=== PATIENT | female | born 1980 | race Hispanic/Latino ===

== ENCOUNTER 2017-11-07 14:47 | Day surgery (SDC) | payer MEDICAID, OTHER, SELFPAY ==
--- NOTE | 2017-11-07 16:44 | PDOC.LDHP ---
Labor and Delivery H&P Chief complaint: abdominal pain (pelvic pain, vaginal pressure) HPI: 36yo at 37.2wk here for pelvic pain and vaginal pressure since awakening this morning. Denies any fevers, chills, upper abd pain, discharge, vaginal bleeding or LOF. Not feeling any Ctx. Drinking 4 cups of water per day at baseline. No other concerns today. Current gestational age (weeks): 37 (37.2) Due date: 11/26/17 Grav: 6 Para: 4 Current complications: none Current medications: pre- vitamins Social history: none - Physical Exam Vital signs reviewed and normal: yes General: NAD, resting Heart: RRR Lungs: CTAB Abdomen: other (gravid, nontender fundus, ttp along round ligament and pubic symphysis) Extremeties: no edema FHT: category 1, variability present [place] contractions every: rare occasional contraction - Vaginal Exam cm dilated: 2 (2-2.5) Effacement: 50% Station: -1 - Assessment 1) TIUP- rare ctx on toco and pt not feeling regular ctx. cervix unchanged at 2.5cm. not in active labor 2) Round ligament pain - Plan -: discharge home with instructions to increase water intake to a goal of 8 bottles of water per day. Recommended 1000mg tylenol q6hr prn pain and may take benadryl prn qhs to assist with sleep. f/u with pcp at c. discussed poc with Dr. Courtney Multani who agreed with the above A&P. <Gail Lozano - Last Filed: 11/07/17 16:34> <Courtney Multain - Last Filed: 11/07/17 17:25> Allergies/Adverse Reactions: Allergies Allergy/AdvReac Type Severity Reaction Status Date / Time No Known Allergies Allergy Unverified 02/01/13 14:38 Attending Addendum - Attending Addendum Date/Time: 11/07/17 [id number] I personally evaluated the patient and discussed the management with Dr. Lozano. I agree with the History, Examination, Assessment and Plan documented above. <Courtney Multani - Last Filed: 11/07/17 17:25>
[2017-11-07 16:52] VITALS: BMI 29.0
== END 2017-11-07 16:58 | disposition home or self-care (01) ==
LOC: L&D/OP 14:47
PROVIDERS: ATTEND Obstetrics & Gynecology
DX: O99.89 Other specified diseases and conditions complicating pregnancy, childbirth and the puerperium (principal); R10.2 Pelvic and perineal pain; Z3A.37 37 weeks gestation of pregnancy; Z79.899 Other long term (current) drug therapy

== ENCOUNTER 2017-12-04 21:09 | Day surgery (SDC) | payer OTHER ==
[2017-12-04 21:40] VITALS: BP 119/69; TEMP 98.4; BMI 27.1
--- NOTE | 2017-12-04 21:50 | PDOC.LDHP ---
Labor and Delivery H&P Chief complaint: contractions HPI: 36 at 40.1 by 6.4 wk US. Here with complaint of contractions q30 minutes all day. She states that she thinks that she lost her mucus plug earlier today. She denies loss of fluid, bleeding, decreased movement, or abdominal tenderness. Her has been complicated by GBS + status, AMA and hx of macrosomia. Current gestational age (weeks): 40 (40.1) Due date: 12/03/17 Dating criteria: first trimester ultrasound Grav: 6 Para: 4 Current complications: other (AMA) Abnormal US findings: No Current medications: pre- vitamins Allergies/Adverse Reactions: Allergies Allergy/AdvReac Type Severity Reaction Status Date / Time No Known Allergies Allergy Unverified 12/04/17 21:33 Social history: none - Physical Exam Vital signs reviewed and normal: yes General: breathing through contractions Heart: RRR Lungs: CTAB Abdomen: gravid Extremeties: no edema FHT: category 1, variability present, absent or minimal variables [place] contractions every: 12 - Vaginal Exam cm dilated: 4 Effacement: 0% Station: -3 - OB Labs Blood type: O RH: positive Antibody Screen: negative HIV: negative RPR: negative HEPSAg: negative 1 hour GCT: negative GBS: positive Urine drug screen: negative Rubella: immune - Assessment 36 yo at 40.1 in latent labor. - Cat 1 strip - No loss of fluid, bleeding, decreased movement - Dilated to 4. - Monitor in L&D and recheck in 1 hour. - Plan Plan: observation in L&D
== END 2017-12-04 23:15 | disposition home or self-care (01) ==
LOC: L&D/OP 21:09
PROVIDERS: ATTEND Obstetrics & Gynecology
DX: O47.1 False labor at or after 37 completed weeks of gestation (principal); O09.523 Supervision of elderly multigravida, third trimester; Z79.899 Other long term (current) drug therapy; Z3A.40 40 weeks gestation of pregnancy

== ENCOUNTER 2017-12-05 11:37 | Inpatient (IN) | payer MEDICAID, OTHER, SELFPAY ==
[2017-12-05 12:05] VITALS: BMI 27.1
[2017-12-05] MEDS ORDERED: Penicillin G Potassium 5 MILL.UNITS VIAL ONE ×2 (12:12→12:13)
[2017-12-05] MEDS: Lactated Ringer's 1,000 ML IV SCH ×2 (12:15→22:38)
[2017-12-05] MEDS ORDERED: Promethazine HCl 25 MG/ML VIAL IM PRN (12:20)
[2017-12-05] MEDS ORDERED: Lidocaine 1% (PF) 30 ML VIAL SC PRN (12:20)
[2017-12-05] MEDS ORDERED: LR / Pitocin 40 units/1000 ml 1,000 ML IV PRN (12:20)
[2017-12-05] MEDS ORDERED: Docusate 100 MG CAP PO PRN (12:20)
[2017-12-05] MEDS ORDERED: Ondansetron HCl/PF 4 MG/2 ML Vial IVP PRN ×2 (12:20→14:24)
[2017-12-05] MEDS ORDERED: Penicillin G Potassium 5 MILL.UNITS in Sodium Chloride 0.9% 100 ML IVPB SCH (12:30)
[2017-12-05 12:33] LABS: Hemoglobin 14.6 g/dL (12.0-16.0); Mean Corpuscular HGB CONC 34.6 g/dL (32.0-36.0); Mean Corpuscular Hemoglobin 31.1 pg (27.0-31.0); Mean Corpuscular Volume 89.6 fl (81.0-99.0); Mean Platelet Volume 7.9 fL (7.4-10.4); Platelet Count 180 thou/uL (130-400); RBC Distribution Width 12.6 % (11.5-14.5); Red Blood Cell (RBC) Count 4.69 mill/uL (4.20-5.40); White Blood Cell (WBC) Count 8.3 thou/uL (4.8-10.8)
--- NOTE | 2017-12-05 12:42 | PDOC.LDHP ---
Labor and Delivery H&P Chief complaint: contractions HPI: 36 yo @ 40.2 weeks presents for painful contractions. Reports contractions started last night and were approx 10 minutes apart. She was triaged on L7D and sent home. She returns today with contractions q5min. She reports loss of mucus plug and some vaginal bleeding. Denies complications both previously and with current . All prior vaginal deliveries. Denies cp, sob, nvdc, headache, vision changes, edema. Current gestational age (weeks): 40 Dating criteria: last menstrual period, first trimester ultrasound Grav: 6 Para: 5 OB History Details: GBS + Current complications: none Abnormal US findings: No Current medications: pre- vitamins Previous surgical history: none Social history: none - Physical Exam Vital signs reviewed and normal: yes General: breathing through contractions Heart: RRR Lungs: nonlabored breathing Abdomen: NTTP Extremeties: no edema FHT: category 1, early decelerations [place] contractions every: 4-5 - Vaginal Exam cm dilated: 7 Effacement: 100% Station: -1 - OB Labs Blood type: O RH: positive Antibody Screen: negative HIV: negative RPR: negative HEPSAg: negative 1 hour GCT: negative GBS: positive Rubella: immune - Assessment L&D Assessment: term patient in labor - Plan Plan: admit to L&D -: 1) Grand multip in labor w/ ama -admit l&d -stadol prn pain -EFHR monitor -cat 1 strip rate 140s mod variability, rare early decels -vertex presentation, ant placenta -last check 7-8, 100, -1 2) GBS positive -Pen g 5mill units -2.5 mil units q4hr for ppx <Abraham Farris - Last Filed: 12/05/17 13:10> - Plan Plan: admit to L&D (Agree with Plan. Patient seen and examined by me. See Faculty note.) <Jacob Gaytan - Last Filed: 12/05/17 14:16> Allergies/Adverse Reactions: Allergies Allergy/AdvReac Type Severity Reaction Status Date / Time No Known Allergies Allergy Unverified 12/04/17 21:33
--- NOTE | 2017-12-05 13:06 | PDOC.LDHP ---
Labor and Delivery H&P HPI: FACULTY NOTE: Patient was first seen by [facility] flooring professional. This patient has an H &P entered unto tomorrow's date. This is the correct entry: Patient is a 36 yo at 40 weeks 2 days by sure criteria here for contractions. SROM just occurred here in L&D, and she is now 8cm...admitted at 7cm just 20 minutes ago. No other issues. Review of systems: complete ROS performed and only as per HPI. Current gestational age (weeks): 40 (2 days) Dating criteria: last menstrual period, first trimester ultrasound Grav: 6 Para: 5 OB History Details: SVDs in past Current complications: none Abnormal US findings: No Current medications: pre- vitamins Previous surgical history: none Allergies/Adverse Reactions: Allergies Allergy/AdvReac Type Severity Reaction Status Date / Time No Known Allergies Allergy Unverified 12/04/17 21:33 Social history: none - Physical Exam Vital signs reviewed and normal: yes General: NAD Heart: RRR Lungs: CTAB Abdomen: gravid (EFW approx 6.5#) Extremeties: no edema FHT: category 1 [place] contractions every: Every 4 minutes - Vaginal Exam cm dilated: 8 (SROM just occurred) Effacement: 100% Station: 0 - OB Labs Blood type: O RH: positive HIV: negative RPR: negative GBS: positive - Assessment L&D Assessment: term patient in labor - Plan Plan: admit to L&D, GBS antibiotic prophylaxis, informed consent obtained, anesthesia consult for pain management
[2017-12-05 13:13] LABS: HBSAg Index 0.15 S/CO (0-0.99); Hep B Surf Ag Non-Reactive S/CO (NonReactive); Syphilis Antibody Nonreactive (Nonreactive); Syphilis Antibody Index 0.04 S/CO (<1.00 Non-Reactive)
--- NOTE | 2017-12-05 14:19 | PDOC.OPDEL ---
OB Operative/Delivery Note Delivery Dr/Surgeon: Elizabeth/Kaleigh; [facility] faculty (Present and supervised) Pre-Delivery Diagnosis: active labor, other (Grand-Multigravida, term.) Procedure/Post Delivery Dx: spontaneous vaginal delivery Weeks gestation: 40 - Findings A Sex: female (Delivery at 1405) - 1 min: 9 - 5 min: 9 - Additional Findings/Plan Placenta delivered: spontaneous (Delivered spontaneously within 10minutes. Aiken mechanism, 3VC. Placenta intact.) Repaired Obstetrical Laceration: other Estimated blood loss: 300 Compilations/Other Findings: Counts correct
[2017-12-05] MEDS ORDERED: Lanolin Ointment 7 GM TUBE TOP PRN (14:24)
[2017-12-05] MEDS ORDERED: Bisacodyl 10 MG SUPP PR PRN (14:24)
[2017-12-05] MEDS ORDERED: Milk Of Magnesia 30 ML UDCUP PO PRN (14:24)
[2017-12-05] MEDS ORDERED: Adacel (T-DAP) 0.5 ML VIAL IM ONE (14:24)
[2017-12-05] MEDS ORDERED: LR / Pitocin 40 units/1000 ml 1,000 ML IV SCH (14:30)
[2017-12-05] MEDS: Ibuprofen 800 MG TAB PO SCH (15:26)
[2017-12-05] MEDS: Ferrous Sulfate 325 MG TAB PO SCH (17:35)
[2017-12-05] MEDS: Penicillin G 2.5 MILL.units 2.5 MILL.UNITS in Premix Bag 1 BAG IVPB SCH (17:35)
[2017-12-05] MEDS: Acetaminophen 500 MG TAB PO PRN (22:38)
[2017-12-05] MEDS: Docusate Calcium (SURFAK) 240 MG CAP PO SCH (22:39)
[2017-12-06 05:27] LABS: Hemoglobin 10.8 g/dL (12.0-16.0); Mean Corpuscular HGB CONC 33.9 g/dL (32.0-36.0); Mean Corpuscular Hemoglobin 31.6 pg (27.0-31.0); Mean Corpuscular Volume 93.1 fl (81.0-99.0); Mean Platelet Volume 8.2 fL (7.4-10.4); Platelet Count 169 thou/uL (130-400); RBC Distribution Width 12.6 % (11.5-14.5); Red Blood Cell (RBC) Count 3.41 mill/uL (4.20-5.40); White Blood Cell (WBC) Count 8.3 thou/uL (4.8-10.8)
[2017-12-06] MEDS: Ibuprofen 800 MG TAB PO SCH ×4 (05:30→22:17)
--- NOTE | 2017-12-06 07:46 | PDOC.EVN ---
Event Note - Event Note Event Note: Faculty note: Patient s/p Doing well VSS afebrile Hct 31 Physical: NAD Uterine fundus firm and NT A/P: PP D1...will assess ability for discharge home at noon today ([facility] to assess).
--- NOTE | 2017-12-06 08:00 | PDOC.PP ---
Post Progress Note Post Day #: 1 Subjective: Feeling well. Pain well controlled overnight. PO intake tolerated: yes Flatus: no Ambulation: yes Vital Signs (12 hours) Temp Pulse Resp BP 12/06/17 07:44 98.0 F 56 L 18 98/53 L 12/06/17 05:32 98.5 F 55 L 18 96/56 L 12/06/17 04:00 98.5 F 55 L 18 12/06/17 00:00 98.6 F 97 18 12/05/17 20:00 98.6 F 97 18 86/50 L Weight Weight 76.204 kg - Physical Examination General: NAD Cardiovascular: no m/r/g, RRR Respiratory: clear to auscultation bilaterally, non-labored breathing Abdominal: + bowel sounds, lochia (moderate), no distention, appropriately TTP Extremities: negative homans (B) Skin: no rash Neurological: no gross focal deficits Psychiatric: A&Ox3, normal affect Result Diagrams: 12/06/17 04:47 Additional Labs: Post Labs Hep Bs Antigen Non-Reactive S/CO (NonReactive) 12/05/17 12:15 (1) Vaginal delivery Code(s): O80 - ENCOUNTER FOR FULL-TERM UNCOMPLICATED DELIVERY Status: Acute Comment: Delivered TAGA F @ 1405 on 12/06/17 via w/o complications. Hemoglobin decreased from 14.6 to 10.8 overnight but patient remains asymptomatic. BPs also on low side of normal but again pt denies any associated symptoms. Will continue to monitor throughout today and reassess at noon for discharge planning. Baby will likely need to stay at least 36 HOL due to GBS positive without adequate ppx, so consider bed and breakfast v. keeping until tomorrow. (2) Grand multiparity Code(s): Z64.1 - PROBLEMS RELATED TO MULTIPARITY Status: Acute Comment: EBL 300mL.
[2017-12-06] MEDS: Penicillin G 2.5 MILL.units 2.5 MILL.UNITS in Premix Bag 1 BAG IVPB SCH ×3 (09:48→18:17)
[2017-12-06] MEDS: Lactated Ringer's 1,000 ML IV SCH ×3 (09:50→22:18)
[2017-12-06] MEDS: Ferrous Sulfate 325 MG TAB PO SCH ×2 (09:50→18:18)
[2017-12-06] MEDS: Docusate Calcium (SURFAK) 240 MG CAP PO SCH ×2 (09:53→22:17)
[2017-12-06] MEDS: Prenatal Vitamin 1 TAB PO SCH (09:53)
[2017-12-07] MEDS: Acetaminophen 500 MG TAB PO PRN (01:35)
[2017-12-07] MEDS: Ibuprofen 800 MG TAB PO SCH ×2 (06:19→13:50)
[2017-12-07] MEDS: Penicillin G 2.5 MILL.units 2.5 MILL.UNITS in Premix Bag 1 BAG IVPB SCH ×3 (07:32→07:35)
[2017-12-07] MEDS: Lactated Ringer's 1,000 ML IV SCH (07:33)
[2017-12-07] MEDS: Ferrous Sulfate 325 MG TAB PO SCH (07:34)
[2017-12-07] MEDS: Prenatal Vitamin 1 TAB PO SCH (07:52)
[2017-12-07] MEDS: Docusate Calcium (SURFAK) 240 MG CAP PO SCH (07:53)
--- NOTE | 2017-12-07 08:50 | PDOC.PP ---
Post Progress Note Post Day #: 2 Subjective: Doing well, no issues reported. PO intake tolerated: yes Flatus: yes Ambulation: yes Vital Signs (12 hours) Temp Pulse Resp 12/07/17 04:00 98.1 F 66 18 12/07/17 00:00 98.1 F 66 18 Weight Weight 76.204 kg - Physical Examination General: NAD Cardiovascular: no m/r/g, RRR Respiratory: clear to auscultation bilaterally, non-labored breathing Abdominal: + bowel sounds, lochia, no distention, appropriately TTP Extremities: negative homans (B) Skin: no rash Neurological: no gross focal deficits Psychiatric: A&Ox3, normal affect Result Diagrams: 12/06/17 04:47 Additional Labs: Post Labs Hep Bs Antigen Non-Reactive S/CO (NonReactive) 12/05/17 12:15 (1) Vaginal delivery Code(s): O80 - ENCOUNTER FOR FULL-TERM UNCOMPLICATED DELIVERY Status: Acute Comment: Delivered TAGA F @ 1405 on 12/05/17 via w/o complications. Hemoglobin decreased from 14.6 to 10.8 PP but pt has remained asx. Baby to stay 48 hours due to maternal GBS positive status w/o adequate ppx during labor. Will plan for maternal d/c with baby around 2pm this afternoon. (2) Grand multiparity Code(s): Z64.1 - PROBLEMS RELATED TO MULTIPARITY Status: Acute Comment: EBL 300mL. <Mendez Johnson - Last Filed: 12/07/17 08:47> Vital Signs (12 hours) Temp Pulse Resp BP 12/07/17 08:00 98.3 F 57 L 12 101/58 L 12/07/17 04:00 98.1 F 66 18 12/07/17 00:00 98.1 F 66 18 Weight Weight 168 lb Result Diagrams: 12/06/17 04:47 Additional Labs: Post Labs Hep Bs Antigen Non-Reactive S/CO (NonReactive) 12/05/17 12:15 - Assessment/Plan FACULTY NOTE: patient has been seen and evaluated by me. Vitals and overnight care reviewed. Agree with Dr Johnson assessment. Patient is clear for discharge as PPD2 S/P . <Jacob Gaytan - Last Filed: 12/07/17 09:37>
[2017-12-07 09:20] VITALS: BP 101/58; TEMP 98.3
== END 2017-12-07 15:05 | disposition home or self-care (01) | DRG 775 ==
LOC: L&D/OP 11:37 → L&D 14:41 → 3SW 16:24
PROVIDERS: ADMIT Obstetrics & Gynecology; ATTEND Obstetrics & Gynecology
PROC: 10E0XZZ Delivery of Products of Conception, External Approach (ICD-10-PCS; principal; 2017-12-05)
DX: O99.824 Streptococcus B carrier state complicating childbirth (principal); Z37.0 Single live birth; Z3A.40 40 weeks gestation of pregnancy; Z64.1 Problems related to multiparity
CPT/HCPCS: 36415; 85027; 86780; 87340; 99285; J0595; J2540

== ENCOUNTER 2019-04-28 06:12 | Emergency (ER) | payer MEDICAID, SELFPAY ==
[2019-04-28 06:37] LABS: #Lymphocytes 1.4 thou/uL (1.20-3.40); #Monocytes 0.8 thou/uL (0.11-0.59); #Neutrophils 15.4 thou/uL (1.40-6.50); %Basophils 0.2 % (0.0-1.0); %Eosinophils 0.3 % (0.0-10.0); %Lymphocytes 7.8 % (21.0-51.0); %Monocytes 4.6 % (0.0-10.0); %Neutrophils 87.1 % (42.0-75.0); Hemoglobin 13.3 g/dL (12.0-16.0); Mean Corpuscular HGB CONC 33.9 g/dL (32.0-36.0); Mean Corpuscular Hemoglobin 31.3 pg (27.0-31.0); Mean Corpuscular Volume 92.3 fL (78.0-98.0); Mean Platelet Volume 7.7 fL (7.4-10.4); Platelet Count 191 thou/uL (130-400); RBC Distribution Width 12.3 % (11.5-14.5); Red Blood Cell (RBC) Count 4.25 mill/uL (4.20-5.40); White Blood Cell (WBC) Count 17.6 thou/uL (4.8-10.8)
[2019-04-28 06:52] LABS: ALT (SGPT) 10 U/L (8-55); AST (SGOT) 18 U/L (5-34); Albumin 4.1 g/dL (3.5-5.0); Alkaline Phosphatase 77 U/L (40-150); Anion Gap 14 mmol/L (10-20); BUN (Urea Nitrogen) 11 mg/dL (7.0-18.7); Bilirubin, Total 0.5 mg/dL (0.2-1.2); Calc. Creatinine Clearance 0 mL/min (70-130); Calcium 9.2 mg/dL (7.8-10.44); Carbon Dioxide 19 mmol/L (22-29); Chloride 106 mmol/L (98-107); Estimated GFR-MDRD Greater than 90; Globulin 2.6 g/dL (2.4-3.5); Glucose 95 mg/dL (70-105); Potassium 3.5 mmol/L (3.5-5.1); Protein, Total 6.7 g/dL (6.0-8.3); Sodium 135 mmol/L (136-145)
[2019-04-28] MEDS ORDERED: HYDROcodone/Acetaminophen 10/325 mg Tablet ONE (06:56)
== END 2019-04-28 07:41 | disposition home or self-care (01) ==
LOC: ERS 06:12
DX: O20.0 Threatened abortion (principal); Z3A.16 16 weeks gestation of pregnancy
CPT/HCPCS: 36415; 80053; 84702; 85025; 96360

== ENCOUNTER 2019-04-29 02:44 | Emergency (ER) | payer OTHER, SELFPAY ==
[2019-04-29] MEDS ORDERED: Ondansetron PF 4 MG/2 ML Vial ONE (03:14)
[2019-04-29] MEDS ORDERED: Morphine 4 MG/ML VIAL ONE (03:14)
[2019-04-29 03:59] LABS: Hemoglobin 12.6 g/dL (12.0-16.0); Mean Corpuscular HGB CONC 34.6 g/dL (32.0-36.0); Mean Corpuscular Hemoglobin 31.7 pg (27.0-31.0); Mean Corpuscular Volume 91.6 fL (78.0-98.0); Mean Platelet Volume 7.9 fL (7.4-10.4); Platelet Count 177 thou/uL (130-400); RBC Distribution Width 12.3 % (11.5-14.5); Red Blood Cell (RBC) Count 3.97 mill/uL (4.20-5.40); White Blood Cell (WBC) Count 14.8 thou/uL (4.8-10.8)
[2019-04-29 04:07] LABS: Bacteria/HPF None Seen HPF (None Seen); Bilirubin Negative (Negative); Blood, Urine 3+ (Negative); Clarity Clear (Clear); Glucose, Urine (Dipstick) Normal (Negative); Leukocyte 250 Leu/uL (Negative); Mucous/LPF Rare LPF (<2+); Nitrite Negative (Negative); Protein, Urine (Dipstick) 20 mg/dL (Neg-Trace); RBC/HPF Greater than 50 HPF (0-3); Squamous Epithelial 0-3 HPF (0-3); Urobilinogen Normal mg/dL (Less than 2)
[2019-04-29 04:22] LABS: Band 15 % (5-11); Lymphocytes 11 % (21-51); MDiff Complete? YES; Monocytes 4 % (0-10); Neutrophil 70 % (42-75); Platelet Morphology Comment Appears Adequate
== END 2019-04-29 04:32 | disposition home or self-care (01) ==
LOC: ERS 02:44
DX: O03.9 Complete or unspecified spontaneous abortion without complication (principal)
CPT/HCPCS: 81003; 81015; 84702; 85025; 86900; 86901; 96374; 96375; J2270; J2405

== ENCOUNTER 2020-10-12 22:01 | Emergency (ER) | payer OTHER, SELFPAY ==
[2020-10-12 23:10] LABS: Bacteria/HPF Rare-Few HPF (None Seen); Bilirubin Negative (Negative); Blood, Urine Negative (Negative); Clarity Clear (Clear); Glucose, Urine (Dipstick) Normal (Negative); Ketone, Urine Negative (Negative); Leukocyte 25 Leu/uL (Negative); Nitrite Negative (Negative); Protein, Urine (Dipstick) 20 mg/dL (Neg-Trace); RBC/HPF 0-3 HPF (0-3); Specific Gravity, Urine 1.025 (1.002-1.036); Squamous Epithelial 0-3 HPF (0-3); Urobilinogen Normal mg/dL (Less than 2); pH, Urine 6.5 (5.0-9.0)
[2020-10-12 23:11] LABS: Pregnancy Test - Urine (BHCG) POSITIVE (Negative); Pregu Control Background? CLEAR/WHITE (CLR/WHITE); Pregu Control Bar Appear? YES (CONTROL BAR); Specific Gravity 1.025 (1.002-1.036)
== END 2020-10-13 | disposition home or self-care (01) ==
LOC: ERS 22:01
DX: O23.93 Unspecified genitourinary tract infection in pregnancy, third trimester (principal); O99.891 Other specified diseases and conditions complicating pregnancy; R82.71 Bacteriuria; Z3A.36 36 weeks gestation of pregnancy
CPT/HCPCS: 81003; 81015; 81025